=== PATIENT | male | born 1945 | race Caucasian/White ===

== ENCOUNTER 2020-01-09 06:57 | Outpatient (CLI) | payer MEDICARE | END 2020-01-09 23:59 | disposition home or self-care (01) | LOC: CFH 06:57 | PROVIDERS: ATTEND Internal Medicine Cardiovascular Disease | DX: I08.2 Rheumatic disorders of both aortic and tricuspid valves (principal); E78.5 Hyperlipidemia, unspecified | CPT/HCPCS: 78452; 93017; 93306; A9502 ==